=== PATIENT | female | born 1990 ===

== ENCOUNTER 2017-07-25 19:58 | Inpatient (IN) | payer SELFPAY ==
[2017-07-25] VITALS (17 sets, daily range): BP systolic 100–1117; BP diastolic 58–90; PULSE 64–120; TEMP 97.4–98.9
[~2017-07-25] VITALS: Ht 162.6 cm; Wt 81.8 kg
[2017-07-25 21:56] LABS: BASO % 0.2 % (0.0-2.0); EOS % 0.4 % (0-4.0); GRAN # 7.8 (1.4-6.5); LYMPH # 1.6 (1.2-3.4); LYMPH % 16.3 % (20.0-51.0); MEAN CELL VOLUME 98 fl (80.0-100.0); MEAN CORPUSCULAR HGB CONC 34 g/dl (33.0-37.0); MEAN PLATELET VOLUME 11.4 fl (7.4-10.4); MONO # 0.6 (0.1-0.6); MONO % 5.9 % (1.7-9.3); PLATELET COUNT 145 K/mm3 (130-400); RED BLOOD COUNT 3.55 M/mm3 (4.10-5.30); WHITE BLOOD COUNT 10.1 K/mm3 (4.8-10.8)
[2017-07-25 21:57] LABS: HEMATOCRIT 34.6 % (37.0-47.0); HEMOGLOBIN 11.6 g/dl (12.5-16.0); MEAN CORPUSCULAR HEMOGLOBIN 33 pg (27.0-31.0)
[2017-07-26 00:25] VITALS: BP 118/56; PULSE 62
[2017-07-26 00:50] VITALS: BP 112/58; PULSE 58
[2017-07-26 03:00] VITALS: BP 108/45; PULSE 79; TEMP 98.5
[2017-07-26 06:51] VITALS: BP 111/67; PULSE 78; TEMP 97.7
[2017-07-26 15:30] VITALS: BP 98/55; PULSE 80; TEMP 97.9
[2017-07-26 21:30] VITALS: BP 128/67; PULSE 75; TEMP 98.4
[2017-07-27] MEDS ORDERED: ADVIL100 MG/5 M PO (08:21)
[2017-07-27 08:30] VITALS: BP 106/65; PULSE 85; TEMP 97.5
== END 2017-07-27 19:00 | disposition home or self-care (01) | DRG 775 ==
LOC: LDR 19:58 → LDRO 19:58 → LDR 19:59 → OB 07-26 01:00
PROVIDERS: Obstetrics & Gynecology
PROC: 10E0XZZ Delivery of Products of Conception, External Approach (ICD-10-PCS; principal; 2017-07-25)
PROC: 0KQM0ZZ Repair Perineum Muscle, Open Approach (ICD-10-PCS; 2017-07-25)
PROC: 0UQMXZZ Repair Vulva, External Approach (ICD-10-PCS; 2017-07-25)
DX: O70.1 Second degree perineal laceration during delivery (principal); Z37.0 Single live birth; O99.824 Streptococcus B carrier state complicating childbirth; O71.82 Other specified trauma to perineum and vulva; Z3A.39 39 weeks gestation of pregnancy
CPT/HCPCS: J2540; J2590; J7120

== ENCOUNTER 2018-09-25 00:51 | Inpatient (IN) | payer SELFPAY ==
[~2018-09-25] VITALS: Ht 162.6 cm; Wt 78.6 kg
[2018-09-25] VITALS (12 sets, daily range): BP systolic 106–122; BP diastolic 60–76; PULSE 63–90; TEMP 97.4–98.3
[~2018-09-25 00:51] MED LIST: ADVIL100 MG/5 M PO
--- NOTE | 2018-09-25 01:00 | NUR ---
0100- Pt arrived on unit with complaints of contractions escorted by . Pt reports ctx starting at 1800 and worsening throughout the night. Pt denies any leaking of fluid or bleeding and reports normal movement. EFM and toco monitors placed. Vital signs WNL. SVE 690/0. 0125- Spoke with Dr. Garcia for an update on pt's arrival, FHR tracing and SVE. Orders for labor admission received. 0140- IV started and labs obtained. 0149- Pt reports feeling lots of pressure and need to push with ctx. SVE 9/100/+1. Spoke with Dr. Garcia for an update. SVE and FHR tracing reviewed. MD on way in for delivery. 0205- Dr. Garcia at the bedside. FHR tracing reviewed. Pt set up for delivery. 0208- SVE by Dr. Garcia 10cm. AROM with clear fluid. 0212- of viable female . placed on pt's abdomen. Cords clamped and cut. Care of turned over to nursery RN at the bedside. 0217- of placenta. Fundus firm with moderate lochia per Dr. Garcia. Pitocin started at 333ml/hr per order.
[2018-09-25 02:58] LABS: BASO % 0.3 % (0.0-2.0); EOS % 0.3 % (0-4.0); GRAN # 8.6 (1.4-6.5); GRAN % 76.6 % (42.2-75.2); HEMATOCRIT 37.8 % (37.0-47.0); HEMOGLOBIN 13.2 g/dl (12.5-16.0); LYMPH # 1.9 (1.2-3.4); LYMPH % 16.7 % (20.0-51.0); MEAN CELL VOLUME 97 fl (80.0-100.0); MEAN CORPUSCULAR HEMOGLOBIN 34 pg (27.0-31.0); MEAN CORPUSCULAR HGB CONC 35 g/dl (33.0-37.0); MEAN PLATELET VOLUME 11.2 fl (7.4-10.4); MONO # 0.6 (0.1-0.6); MONO % 5.7 % (1.7-9.3); PLATELET COUNT 132 K/mm3 (130-400); REDCELL DISTRIBUTION WIDTH-CV 13.6 % (11.5-14.5)
--- NOTE | 2018-09-25 04:55 | NUR ---
Pt up to the bathroom with standby assist. Pt able to void. Pericare done. Pt transferred to 207 ambulatory. Oriented to room, bed and call light within reach. Plan of care reviewed.
--- NOTE | 2018-09-25 10:29 | NUR ---
Initial visit; Patient thanked Raspberry Checker for offering congratulations and God's blessings for the of her daughter. Raspberry Checker thanked mom for choosing [facility].
[2018-09-26 07:00] VITALS: BP 114/64; PULSE 77; TEMP 97.5
== END 2018-09-26 11:40 | disposition home or self-care (01) | DRG 806 ==
LOC: LDRO 00:51 → LDR 01:00 → OB 05:02
PROVIDERS: Obstetrics & Gynecology; ADMIT Obstetrics & Gynecology
PROC: 10E0XZZ Delivery of Products of Conception, External Approach (ICD-10-PCS; principal; 2018-09-25)
PROC: 0HQ9XZZ Repair Perineum Skin, External Approach (ICD-10-PCS; 2018-09-25)
DX: O70.0 First degree perineal laceration during delivery (principal); O99.12 Other diseases of the blood and blood-forming organs and certain disorders involving the immune mechanism complicating childbirth; Z37.0 Single live birth; Z3A.39 39 weeks gestation of pregnancy; D69.6 Thrombocytopenia, unspecified
CPT/HCPCS: J2590; J7120

== ENCOUNTER 2020-01-25 04:55 | Inpatient (IN) | payer MEDICAID ==
[2020-01-25] VITALS (26 sets, daily range): BP systolic 90–131; BP diastolic 51–73; PULSE 58–105; TEMP 97.7–99.1
[~2020-01-25] VITALS: Ht 157.5 cm; Wt 82.7 kg
[2020-01-25 06:33] LABS: BASO % 0.4 % (0.0-2.0); EOS % 0.3 % (0-4.0); GRAN # 7.6 (1.4-6.5); HEMOGLOBIN 11.8 g/dl (12.5-16.0); LYMPH # 1.6 (1.2-3.4); LYMPH % 15.9 % (20.0-51.0); MEAN CELL VOLUME 97 fl (80.0-100.0); MEAN CORPUSCULAR HEMOGLOBIN 32 pg (27.0-31.0); MEAN CORPUSCULAR HGB CONC 33 g/dl (33.0-37.0); MEAN PLATELET VOLUME 11.7 fl (7.4-10.4); MONO # 0.6 (0.1-0.6); PLATELET COUNT 130 K/mm3 (130-400); RED BLOOD COUNT 3.71 M/mm3 (4.10-5.30); REDCELL DISTRIBUTION WIDTH-CV 14.2 % (11.5-14.5)
[2020-01-25 06:41] LABS: HEMATOCRIT 35.8 % (37.0-47.0)
[2020-01-25 16:07] LABS: TRICYCLIC ANTIDEPRESS URINE NEGATIVE
[2020-01-25] MEDS ORDERED: MOTRIN 800800 MG/TAB PO (22:11)
[2020-01-26 00:45] VITALS: BP 108/54; PULSE 61; TEMP 98.3
[2020-01-26 07:30] VITALS: BP 110/59; PULSE 69; TEMP 98.3
== END 2020-01-26 14:50 | disposition home or self-care (01) | DRG 807 ==
LOC: LDRO 04:55 → LDR 05:54 → OB 15:00
PROVIDERS: Student in an Organized Health Care Education/Training Program; ADMIT Obstetrics & Gynecology
PROC: 10E0XZZ Delivery of Products of Conception, External Approach (ICD-10-PCS; principal; 2020-01-25)
PROC: 10907ZC Drainage of Amniotic Fluid, Therapeutic from Products of Conception, Via Natural or Artificial Opening (ICD-10-PCS; 2020-01-25)
DX: O70.0 First degree perineal laceration during delivery (principal); Z37.0 Single live birth; Z3A.39 39 weeks gestation of pregnancy
CPT/HCPCS: J2590; J2795; J7120

== ENCOUNTER 2022-04-04 19:32 | Inpatient (IN) | payer MEDICAID ==
[2022-04-04] VITALS (7 sets, daily range): BP systolic 103–117; BP diastolic 51–68; PULSE 62–76; TEMP 98.2–98.8
[~2022-04-04] VITALS: Ht 162.6 cm; Wt 76.8 kg
[~2022-04-04 19:32] MED LIST changes: +MOTRIN 800800 MG/TAB PO
--- NOTE | 2022-04-04 19:45 | NUR ---
1943 G5L4 39.3 WEEK GEST TO L R4 WITH C/O CONTRACTIONS SINCE 1800 TONIGHT AND HX OF FAST LABORS. EFM ON. BREATHS THRU CONTRACTIONS. SVE /-3. BOW INTACT. ADM ASSESSMENT COMPLETED. UP TO AMB.
--- NOTE | 2022-04-04 20:40 | NUR ---
2039 RETURNED TO BED FROM [facility] ON 2049 SVE /-2. 2099 DR ROLES NOTIFIED AND ORDER RECIEVED TO ADM PT.
--- NOTE | 2022-04-04 21:30 | NUR ---
2130 IV STARTED AND ADM PERMITS SIGNED. BREATHING WELL THRU CONTRACTIONS.
[2022-04-04 21:50] LABS: BASO % 0.3 % (0.0-2.0); EOS % 0.2 % (0.0-4.0); GRAN # 7.9 K/mm3 (1.4-6.5); GRAN % 77.5 % (42.2-75.2); HEMATOCRIT 38.3 % (37.0-47.0); HEMOGLOBIN 12.9 g/dl (12.5-16.0); LYMPH # 1.6 K/mm3 (1.2-3.4); MEAN CELL VOLUME 99 fl (80.0-100.0); MEAN CORPUSCULAR HEMOGLOBIN 33 pg (27-31); MEAN CORPUSCULAR HGB CONC 34 g/dl (33.0-37.0); MEAN PLATELET VOLUME 12.3 fl (7.4-10.4); MONO # 0.6 K/mm3 (0.1-0.6); MONO % 5.7 % (1.7-9.3); PLATELET COUNT 109 K/mm3 (130-400); RED BLOOD COUNT 3.88 M/mm3 (4.10-5.30); REDCELL DISTRIBUTION WIDTH-CV 14.8 % (11.5-14.5)
--- NOTE | 2022-04-04 23:30 | NUR ---
PT AMB TO THE BR TO VOID, THEN SHE REQUESTS TO AMB IN ROOM FOR A LITTLE WHILE.
[2022-04-05] VITALS: BP 119/78; PULSE 70; TEMP 97.8
[2022-04-05 02:00] VITALS: BP 128/69; PULSE 68; TEMP 97.8
--- NOTE | 2022-04-05 03:58 | NUR ---
0330. PT REQUESTED TO BE CHECKED AGAIN. NO CHANGE IN CERVIX. CERVIX IS NOW POSTERIOR AND HARDER TO REACH. INFORMED PT THERE WAS NO MORE CHANGE IN HER CERVIX. PT STATED SHE WANTS TO GO HOME AND GET SOME SLEEP. SHE IS EXHAUSTED AND SO IS HER AND SISTER. i EXPLAINED DR CHRISTIE IS COMING IN TO DELIVERY ANOTHER PT AND SHE CAN BREAK HER WATER WHICH WILL HELP HER PROGRESS. PT STATED SHE IS TO EXHAUSTED AND JUST WANTS TO SLEEP. SHE STATES SHE IS NOT FEELING ANY CONTRACTIONS IN THE LAST TWO HOURS. I EXPLAINED SHE IS STILL HAVING THEM EVERY 3-4 MINS ON THE MONITOR. PT STATES "WELL I AM NOT FEELING THEM AND MY CERVIX HAS NOT CHANGED SO I REALLY WANT TO GO HOME AND SLEEP. I DON'T WANT ANY PITOCIN OR AN EPIDURAL, I JUST WANT TO DO THIS ON MY OWN." I STATED YOU LIVE 45 MINS AWAY. PT STATES THEY ARE GOING TO GET A HOTEL ROOM NEAR BY AND SLEEP SO THEY DON'T HAVE TO DRIVE HOME BECAUSE THEY ARE TO EXHAUSTED. i EXPLAINED AGAIN THAT DR CHRISTIE WILL BE HERE WITHIN 30 MINS TO DELIVERY ANOTHER PT AND SHE CAN BREAK HER WATER AND KEEP HER PROGRESSING. PT STATES "NO, I JUST WANT TO GO SO WE CAN ALL GET SOME SLEEP. DR CHRISTIE WAS NOTIFIED AND SHE IS FINE WITH PT GOING TO THE HOTEL IF THAT IS WHAT SHE WANTS TO DO. PT WAS GIVEN INSTRUCTIONS TO RETURN IF HER WATER BREAKS OR SHE HAS HEAVY BLEEDING. PT VERBALIZED UNDERSTANDING. PT LEFT AMB OUT WITH HER FAMILY.
== END 2022-04-05 04:00 | disposition home or self-care (01) | DRG 807 ==
LOC: LDRO 19:32 → LDR 19:32 → LDRO 21:07 → LDR 21:08
PROVIDERS: Obstetrics & Gynecology; ADMIT Obstetrics & Gynecology
PROC: 10E0XZZ Delivery of Products of Conception, External Approach (ICD-10-PCS; principal; 2022-04-05)
PROC: 10907ZC Drainage of Amniotic Fluid, Therapeutic from Products of Conception, Via Natural or Artificial Opening (ICD-10-PCS; 2022-04-05)
PROC: 0HQ9XZZ Repair Perineum Skin, External Approach (ICD-10-PCS; 2022-04-05)
DX: O70.0 First degree perineal laceration during delivery (principal); Z37.0 Single live birth; Z3A.39 39 weeks gestation of pregnancy
CPT/HCPCS: J7120

== ENCOUNTER 2022-04-05 11:00 | Inpatient (IN) | payer MEDICAID ==
[~2022-04-05] VITALS: Ht 162.6 cm; Wt 76.8 kg
[2022-04-05] VITALS (10 sets, daily range): BP systolic 89–128; BP diastolic 44–64; PULSE 53–92; TEMP 97.4–98
--- NOTE | 2022-04-05 10:50 | NUR ---
1050 - PATIENT AMBULATORY TO R5 ACCOMPANIED BY SPOUSE. PATIENT ORIENTED TO ROOM. PATIENT CHANGES INTO GOWN. 1100 - PLAN OF CARE REVIEWED. CONSENTS REVIEWED AND SIGNED. QUESTIONS ANSWERED. 1110 - PATIENT ON MONITOR. 1135 - IV STARTED AND LABS DRAWN ORDERED. LR INITIATED. CARE ONGOING.
--- NOTE | 2022-04-05 12:00 | NUR ---
1145- This RN assumes care of Pt at this time. 1149- FHR not tracing well on monitor, this RN to bedside. Pt transitioning from bed to sitting on edge of bed. EFM adjusted. 1200- Pt wants to labor on BB, provided. EFM and TOCO off for intermittent monitoring.
--- NOTE | 2022-04-05 12:47 | NUR ---
1222- Dr Reyes and this RN at bedside. Pt laboring in bed. EFM and TOCO on and tracing. SVE by , 8-9/100/0, AROM with amniohook, clear, odorless fluid noted. Pt tolerated well. 1236- Pt's calls medical education manager light, states Pt "feeling pushy." Dr Reyes and this RN to bedside. Pt and room prepped for delivery. Karma, nursery RN at bedside. 1239- Pt pushes with UC. Small lip of cervix palpated by MD. 1242- MD calls Pt complete. Pt continues pushing with UCs. 1247- of viable male . Delayed cord clamping by MD. Infant placed on mother's abd where tended to by nursery. Cord blood obtained. Small vaginal laceration repaired by . 1253- Spontaneous delivery of placenta, Pitocin started at 333ml/hr. Fundus massaged to firm by . Pericare completed. Pt resting with infant skin-2-skin. Call light within reach.
[2022-04-05 12:52] LABS: BASO % 0.3 % (0.0-2.0); EOS % 0.3 % (0.0-4.0); GRAN # 7.2 K/mm3 (1.4-6.5); GRAN % 79.6 % (42.2-75.2); HEMOGLOBIN 12.3 g/dl (12.5-16.0); LYMPH # 1.3 K/mm3 (1.2-3.4); LYMPH % 14.4 % (20.0-51.0); MEAN CELL VOLUME 97 fl (80.0-100.0); MEAN CORPUSCULAR HEMOGLOBIN 33 pg (27-31); MEAN CORPUSCULAR HGB CONC 34 g/dl (33.0-37.0); MEAN PLATELET VOLUME 11.8 fl (7.4-10.4); MONO # 0.5 K/mm3 (0.1-0.6); MONO % 5.1 % (1.7-9.3); PLATELET COUNT 136 K/mm3 (130-400); RED BLOOD COUNT 3.73 M/mm3 (4.10-5.30); REDCELL DISTRIBUTION WIDTH-CV 14.4 % (11.5-14.5)
[2022-04-05 12:54] LABS: HEMATOCRIT 36.2 % (37.0-47.0)
--- NOTE | 2022-04-05 15:00 | NUR ---
1500- Pt ambulates to bathroom independently with this RN standby assist. Unable to void at this time. Pericare completed and explained. Clean gown on. Pt ambulates to . Oriented to room, call light within reach.
[2022-04-06 07:36] VITALS: BP 99/66; PULSE 61; TEMP 98
[2022-04-06 17:10] VITALS: BP 105/70; PULSE 55; TEMP 98
--- NOTE | 2022-04-06 18:30 | NUR ---
Report recieved. Ambulating in and out of room. Expressed that she would like to discharge tonight, if at all possible, and would like the ortho nurse to look into her 's test results. Discussed POC at length, questions invited. Verbalized understanding and appreciation for this nurse following-up with ortho nurse. Updated whiteboard.
[2022-04-06 19:15] VITALS: BP 107/70; PULSE 66; TEMP 97.6
--- NOTE | 2022-04-06 20:15 | NUR ---
Informed her and can discharge at this time.
--- NOTE | 2022-04-06 21:00 | NUR ---
Discharge education reviewed including, period of purple crying, safe sleep and depression education information. Provided information and paper verification of follow-up information with TARIFF SUPERVISOR at the [facility]. Questions invited and declined. Encouraged to call with questions or concerns post discharge.
== END 2022-04-06 21:30 | disposition home or self-care (01) | DRG 807 ==
LOC: LDRO 11:00 → LDR 12:59 → OB 12:59
PROVIDERS: ADMIT Obstetrics & Gynecology
PROC: 10E0XZZ Delivery of Products of Conception, External Approach (ICD-10-PCS; principal; 2022-04-05)
PROC: 10907ZC Drainage of Amniotic Fluid, Therapeutic from Products of Conception, Via Natural or Artificial Opening (ICD-10-PCS; 2022-04-05)
PROC: 0UQGXZZ Repair Vagina, External Approach (ICD-10-PCS; 2022-04-05)
DX: O71.4 Obstetric high vaginal laceration alone (principal); Z37.0 Single live birth; Z3A.39 39 weeks gestation of pregnancy
CPT/HCPCS: J2590; J7120

== ENCOUNTER 2024-03-20 20:41 | Inpatient (IN) | payer MEDICAID ==
[~2024-03-20] VITALS: Ht 162.6 cm; Wt 83.2 kg
[2024-03-20] VITALS (7 sets, daily range): BP systolic 104–130; BP diastolic 57–102; PULSE 59–68; TEMP 97.7
--- NOTE | 2024-03-20 20:55 | NUR ---
To unit via [facility], accompanied by spouse. Oriented to room, plan of care. Pt moaning with ctx. SVE 8-9100/-1, BOW intact. Pt reports ctx getting stronger and more regular at 1900. Pt states "I would like to get an spidural if possible." Dr Webster, anethesia on unit notified of pt's advanced dilation and with for epidural.Nsy notified of pt's status.
[2024-03-20] MEDS ORDERED: traZODone 50 MG TAB PO PRN (21:00)
--- NOTE | 2024-03-20 21:14 | NUR ---
Dr Webster into room. SVE Complete, bulging BOW. Dr Webster explains to pt that if she breaks the bag of water the baby will deliver "Quickly" or we can not break the BOW and attempt epidural. PT states "I just want to get the baby out."
--- NOTE | 2024-03-20 21:17 | NUR ---
AROM by Dr Webster, light [facility] fluid. [address] Webster.
--- NOTE | 2024-03-20 21:18 | NUR ---
Live female delivered via , by Dr Webster. dried and bulb suctioned by Dr Webster and then placed on mother's abdomen. Delayed cord clamping observed. After 45 seconds, cord clamped by Dr Webster, cut by FOB and placed skin to skin with mother. Care of assumed by Nursery RN. Delivery recovery started at this time.
[2024-03-20] MEDS ORDERED: LR 1,000 ML IV SCH (21:45)
[2024-03-20 22:07] LABS: BASO # 0.1 K/mm3 (0.0-0.2); BASO % 0.5 % (0.0-2.0); EOS # 0.1 K/mm3 (0.0-0.7); EOS % 0.7 % (0.0-4.0); GRAN % 73.3 % (42.2-75.2); HEMATOCRIT 39.2 % (37.0-47.0); HEMOGLOBIN 13.1 g/dl (12.5-16.0); LYMPH % 18.6 % (20.0-51.0); MEAN CELL VOLUME 97 fl (80.0-100.0); MEAN CORPUSCULAR HEMOGLOBIN 32 pg (27-31); MEAN CORPUSCULAR HGB CONC 33 g/dl (33.0-37.0); MONO # 0.7 K/mm3 (0.1-0.6); MONO % 6.6 % (1.7-9.3); PLATELET COUNT 154 K/mm3 (130-400); RED BLOOD COUNT 4.04 M/mm3 (4.10-5.30); REDCELL DISTRIBUTION WIDTH-CV 14.1 % (11.5-14.5)
[2024-03-20] MEDS ORDERED: Ibuprofen 800 MG TAB PO SCH (22:15)
[2024-03-20] MEDS ORDERED: Magnes Hydrox (MOM) 80 MG/ML 30 ML CUP PO PRN (22:15)
[2024-03-20] MEDS ORDERED: Mag/Al Hydrox/Simeth Susp 30 ML CUP PO PRN (22:15)
[2024-03-20] MEDS ORDERED: Naloxone 0.4 MG/ML VIAL IV PRN (22:15)
[2024-03-20] MEDS ORDERED: Acetaminophen 500 MG TAB PO SCH (22:15)
[2024-03-20] MEDS ORDERED: Witch Hazel 50% Pads Bulk TUB TP PRN (22:15)
[2024-03-20] MEDS ORDERED: Measles/Mumps/Rubella Virus Vaccine Live w Diluent 0.5 ML VIAL SQ SCH (22:15)
[2024-03-20] MEDS ORDERED: Phenylephrine/Mineral Oil/Petrolatum 57 GM TUBE RC PRN (22:15)
[2024-03-20] MEDS ORDERED: Loratadine 10 MG TAB PO PRN (22:15)
[2024-03-21 00:05] VITALS: BP 112/61; PULSE 70
[2024-03-21] MEDS ORDERED: PRENATAL TABLET PO (02:46)
[2024-03-21] MEDS ORDERED: OMEGA-3 1000 MG1 CAP PO (02:47)
[2024-03-21] MEDS ORDERED: PROBIOTIC-MAJOR PO (02:49)
[2024-03-21] MEDS ORDERED: Sennosides/Docusate 8.6-50 MG TAB PO SCH (08:00)
[2024-03-21 08:48] VITALS: BP 104/44; PULSE 69; TEMP 97.4
[2024-03-21] MEDS ORDERED: Acetaminophen Oral Susp 325 MG/10.15 ML UD PO SCH (09:45)
[2024-03-21] MEDS ORDERED: Ibuprofen Oral Susp 100 MG/5 ML UD PO SCH (09:45)
[2024-03-21 11:40] VITALS: BP 104/67; PULSE 75; TEMP 97.4
[2024-03-21 16:30] VITALS: BP 111/56; PULSE 71; TEMP 97.6
[2024-03-21 22:00] VITALS: BP 112/70; PULSE 73; TEMP 98.1
[2024-03-22 07:40] VITALS: BP 108/50; PULSE 62; TEMP 97.7
[2024-03-23] MEDS ORDERED: LR & Oxytocin 500 ML IV SCH (06:45)
== END 2024-03-22 10:45 | disposition home or self-care (01) | DRG 807 ==
LOC: LDRO 20:41 → OB 21:37 → LDR 21:37 → OB 03-21 02:56
PROVIDERS: Student in an Organized Health Care Education/Training Program; ADMIT Obstetrics & Gynecology
PROC: 10E0XZZ Delivery of Products of Conception, External Approach (ICD-10-PCS; principal; 2024-03-20)
DX: O99.12 Other diseases of the blood and blood-forming organs and certain disorders involving the immune mechanism complicating childbirth (principal); Z37.0 Single live birth; D69.59 Other secondary thrombocytopenia; O70.0 First degree perineal laceration during delivery; O77.0 Labor and delivery complicated by meconium in amniotic fluid; Z3A.39 39 weeks gestation of pregnancy
CPT/HCPCS: J2590; J7120